=== PATIENT | male | born 1940 | race Caucasian/White ===

== ENCOUNTER 2017-09-14 18:55 | Emergency (ER) | payer OTHER ==
[~2017-09-14] VITALS: Ht 175.3 cm; Wt 83.9 kg
[2017-09-14] MEDS ORDERED: NORVASC10 MG (19:28)
[2017-09-14] MEDS ORDERED: NORVASC10 MG PO (19:28)
[2017-09-14] MEDS ORDERED: BAYER CHEWABLE81 MG PO (19:28)
[2017-09-14] MEDS ORDERED: HYDROCHLOROTHIA25 MG PO (19:29)
[2017-09-14] MEDS ORDERED: SIMVASTATIN20 MG PO (19:30)
[2017-09-14] MEDS ORDERED: FLOMAX0.4 MG PO (19:30)
== END 2017-09-14 22:27 | disposition home or self-care (01) ==
LOC: ED 18:55
DX: R91.1 Solitary pulmonary nodule (principal); I10 Essential (primary) hypertension; Z79.899 Other long term (current) drug therapy; Z79.82 Long term (current) use of aspirin
CPT/HCPCS: 74177; 80053; 85025; 99284; Q9967